=== PATIENT | male | born 1990 | race Hispanic/Latino ===

== ENCOUNTER 2024-03-20 01:14 | Emergency (ER) | payer SELFPAY ==
[~2024-03-20] VITALS: Ht 180.3 cm; Wt 145.0 kg
[2024-03-20] VITALS (10 sets, daily range): BP systolic 106–132; BP diastolic 60–77
[~2024-03-20 01:14] MED LIST: NAPROSYN500 MG PO
[2024-03-20] MEDS ORDERED: LIDOcaine HCl 1% (Local Anesth.) 20 ML VIAL STI ONE (02:30)
[2024-03-20] MEDS ORDERED: NAPROXEN500 MG PO (03:47)
== END 2024-03-20 04:16 | disposition home or self-care (01) | DRG 159 ==
LOC: ED 01:14
PROC: 0HQ1XZZ Repair Face Skin, External Approach (ICD-10-PCS; principal; 2024-03-20)
DX: S01.511A Laceration without foreign body of lip, initial encounter (principal); S60.221A Contusion of right hand, initial encounter; Y04.0XXA Assault by unarmed brawl or fight, initial encounter

== ENCOUNTER 2024-04-01 21:04 | Emergency (ER) | payer SELFPAY ==
[~2024-04-01] VITALS: Ht 180.3 cm; Wt 145.0 kg
[~2024-04-01 21:04] MED LIST changes: +NAPROXEN500 MG PO
[2024-04-01 22:04] VITALS: BP 138/82
== END 2024-04-01 22:04 | disposition home or self-care (01) | DRG 950 ==
LOC: ED 21:04
DX: S01.511D Laceration without foreign body of lip, subsequent encounter (principal); X58.XXXD Exposure to other specified factors, subsequent encounter